=== PATIENT | female | born 1985 | race Caucasian/White ===

== ENCOUNTER 2017-01-28 16:30 | Emergency (ER) | payer SELFPAY ==
[~2017-01-28] VITALS: Ht 160 cm; Wt 113.0 kg
[2017-01-28] MEDS ORDERED: HYDROCHLOROT25 MG PO (16:42)
[2017-01-28 17:49] LABS: HEMATOCRIT 39.1 % (37.0-47.0); HEMOGLOBIN 13.4 g/dl (12.0-16.0); IMMATURE GRANULOCYTES 0.4 % (0.0-1.0); MEAN CELL VOLUME 90.9 fL CALC (80.0-100.0); MEAN CORPUSCULAR HGB 31.2 pG CALC (26.0-32.0); MEAN CORPUSCULAR HGB CONC 34.3 g/L CALC (32.0-36.0); NEUT# 5.85 thou/uL (2.00-7.15); RED BLOOD COUNT 4.3 mill/uL (4.20-5.60); RED CELL DISTRI WIDTH 14.3 % (11.5-15.5)
[2017-01-28 18:41] LABS: URINE BILIRUBIN - DIPSTICK NEGATIVE (NEGATIVE); URINE BLOOD DIPSTICK NEGATIVE (NEGATIVE); URINE CLARITY CLEAR; URINE COLOR YELLOW; URINE GLUCOSE - DIPSTICK NEGATIVE (NEGATIVE); URINE KETONE NEGATIVE (NEGATIVE); URINE LEUK ESTERASE SMALL (NEGATIVE); URINE NITRITE - DIPSTICK NEGATIVE (Negative); URINE PROTEIN - DIPSTICK NEGATIVE (NEG-TRACE); URINE SPECIFIC GRAVITY 1.025; URINE UROBILINOGEN - DIPSTICK 0.2 E.U./dL (0.2)
[2017-01-28 18:49] LABS: URINE SQUAMOUS EPITHELIAL CELL FEW EPI/hpf (0-FEW)
[2017-01-28 19:53] LABS: ALBUMIN 3.4 g/dL (3.2-5.0); ALKALINE PHOSPHATASE 56 u/l (38-126); AMYLASE < 30 u/l (30-110); ANION GAP 13 (6-22 (CALC)); BILIRUBIN, TOTAL 0.4 mg/dL (0.0-1.4); BUN 7 mg/dL (7-17); BUN/CREATININE RATIO 10 (12-20 (CALC)); CALCIUM 8.6 mg/dL (8.4-10.2); CARBON DIOXIDE 21 mmol/l (22-30); CHLORIDE 111 mmol/l (95-108); CREATININE 0.7 mg/dL (0.5-1.0); GFR > 60 ML/MIN (>=60 (CALC)); GFR FOR AFR.AMER. > 60 ML/MIN (>=60 (CALC)); GLUCOSE 76 mg/dL (65-105); LIPASE 35 u/l (23-300); SGOT/AST 24 u/l (14-36); SGPT/ALT 28 u/l (9-52); SODIUM 140 mmol/l (137-146); TOTAL PROTEIN 6.3 g/dL (6.3-8.2)
[2017-01-28] MEDS ORDERED: BACTRIM DS1 TAB PO (21:11)
[2017-01-28] MEDS ORDERED: PERCOCET 5/325M1 TAB PO (21:11)
[2017-01-28 21:23] VITALS: BP 126/64
== END 2017-01-28 21:23 | disposition home or self-care (01) | DRG 392 ==
LOC: ED 16:30
PROVIDERS: Emergency Medicine
DX: R10.32 Left lower quadrant pain (principal); N39.0 Urinary tract infection, site not specified; N20.0 Calculus of kidney; Z87.442 Personal history of urinary calculi

== ENCOUNTER 2017-02-09 10:54 | Emergency (ER) | payer SELFPAY ==
[~2017-02-09] VITALS: Ht 160 cm; Wt 134.0 kg
[~2017-02-09 10:54] MED LIST: BACTRIM DS1 TAB PO; HYDROCHLOROT25 MG PO; PERCOCET 5/325M1 TAB PO
[2017-02-09 10:56] VITALS: BP 114/74
[2017-02-09] MEDS ORDERED: KEFLEX500 MG PO (11:11)
== END 2017-02-09 11:18 | disposition home or self-care (01) | DRG 918 ==
LOC: ED 10:54
DX: T63.481A Toxic effect of venom of other arthropod, accidental (unintentional), initial encounter (principal); I10 Essential (primary) hypertension; F17.210 Nicotine dependence, cigarettes, uncomplicated

== ENCOUNTER 2017-02-13 22:25 | Emergency (ER) | payer SELFPAY ==
[~2017-02-13] VITALS: Ht 160 cm; Wt 134.6 kg
[~2017-02-13 22:25] MED LIST changes: +KEFLEX500 MG PO
[2017-02-13] MEDS ORDERED: GENTAMICIN0.3 % OS (23:32)
[2017-02-13 23:53] VITALS: BP 137/85
== END 2017-02-13 23:55 | disposition home or self-care (01) | DRG 125 ==
LOC: ED 22:25
DX: H18.822 Corneal disorder due to contact lens, left eye (principal)

== ENCOUNTER 2017-03-18 13:20 | Emergency (ER) | payer SELFPAY ==
[~2017-03-18] VITALS: Ht 160 cm; Wt 140.0 kg
[~2017-03-18 13:20] MED LIST changes: +GENTAMICIN0.3 % OS
[2017-03-18 14:16] VITALS: BP 125/71
[2017-03-18] MEDS ORDERED: FLEXERIL PO ×2 (14:21→14:25)
[2017-03-18] MEDS ORDERED: MOTRIN800 MG PO ×2 (14:21→14:25)
[2017-03-18] MEDS ORDERED: LORTAB 5-325 MG1 TAB PO (14:21)
[2017-03-18] MEDS ORDERED: METHADOSE40 M1 PO (14:24)
== END 2017-03-18 14:32 | disposition home or self-care (01) | DRG 563 ==
LOC: ED 13:20
DX: S63.501A Unspecified sprain of right wrist, initial encounter (principal); I10 Essential (primary) hypertension; S53.401A Unspecified sprain of right elbow, initial encounter; S43.401A Unspecified sprain of right shoulder joint, initial encounter; F17.210 Nicotine dependence, cigarettes, uncomplicated; W18.30XA Fall on same level, unspecified, initial encounter; Y92.002 Bathroom of unspecified non-institutional (private) residence as the place of occurrence of the external cause; Z87.442 Personal history of urinary calculi